=== PATIENT | male | born 1955 | race Caucasian/White ===

== ENCOUNTER 2020-03-16 14:55 | Emergency (ER) | payer OTHER, SELFPAY ==
[2020-03-16 15:09] VITALS: BP 130/79; PULSE 71; RESP 18; TEMP 36.4; O2SAT 100
--- NOTE | 2020-03-16 15:21 | ED.SKABFB ---
HPI - Skin/Abscess/Foreign Bdy General Chief complaint: Skin/Abscess/Foreign Body Stated complaint: Rash Source: patient Mode of arrival: ambulatory Limitations: no limitations History of Present Illness HPI narrative: Patient is a 64-year-old male who presents with poison oak last hand and leg. Patient reports he was exposed to irritant while [place] the [employer] [place]. He denies other complaints. He reports using topical creams without relief. He reports pruritus. Denies pain, denies other complaints. MD complaint: rash Related Data Allergies Allergy/AdvReac Type Severity Reaction Status Date / Time venison Allergy Unknown Uncoded 03/16/20 15:13 Review of Systems Review of Systems: Narrative: CONSTITUTIONAL: Denies fever, chills, or sweats. EYES: Denies visual changes, redness, or discharge. ENT: Denies rhinorrhea, congestion, sore throat, or otalgia. CARDIOVASCULAR: Denies chest pain, palpitations, or edema. RESPIRATORY: Denies cough or dyspnea. GASTROINTESTINAL: Denies abdominal pain, nausea, vomiting, or diarrhea. GENITOURINARY: Denies dysuria or hematuria. SKIN: Reports rash to the left hand and leg MUSCULOSKELETAL: Denies back pain, joint pain, or myalgia. NEUROLOGIC: Denies headache, numbness, dizziness, or weakness. PSYCHIATRIC: Denies anxiety or depression. [facility] Past Medical History Medical History (Updated 03/16/20 @ 15:33 by ANDREA Sesay) Diabetes insipidus Social History Social History (Updated 03/16/20 @ 15:30 by ANDREA Sesay) Smoking status: Never smoker Alcohol intake: current Alcohol use details: occasional Substance use: never Living arrangements: with family Gender identity (if verbalized by the patient): Male Exam Narrative: Exam Narrative: GENERAL: Well-appearing, well-nourished, and in no acute distress. HEAD: Normocephalic, atraumatic. EYES: No redness or drainage. ENT: Mucous membranes pink and moist. CHEST: No respiratory distress. HEART: Regular rate and rhythm. EXTREMITIES: Normal range of motion. No edema. SKIN: Area of erythema, excoriation and blistering to the dorsal left hand, moderate sized area to left leg. NEURO: No focal deficits. Alert and oriented x3. Gait steady. PSYCH: Normal affect. No signs of depression or anxiety. 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 He reports he is on 5 mg of something . Reports list of medications of condition should be in the computer. Patient does not appear to have been seen at an [place] facility in past. Vital Signs Vital signs: Vital Signs Temperature 36.4 C L 03/16/20 15:09 Pulse Rate 71 03/16/20 15:09 Respiratory Rate 18 03/16/20 15:09 Blood Pressure 130/79 03/16/20 15:09 Pulse Oximetry 100 03/16/20 15:09 Temperature 36.4 C L 03/16/20 15:09 Pulse Rate 71 03/16/20 15:09 Respiratory Rate 18 03/16/20 15:09 Blood Pressure 130/79 03/16/20 15:09 Pulse Oximetry 100 03/16/20 15:09 Reviewed. Patient has been instructed to follow-up with his PCP regarding his blood pressure. MDM - Skin/Abscess/Foreign Bdy MDM Narrative Medical decision making narrative: Patient has contact dermatitis. Patient to be treated with a topical steroid cream as well as prednisone. Patient is stable for discharge to home with outpatient follow-up. Critical Care Time Critical Care Time Critical Care Time: No Discharge Plan Discharge Clinical Impression: Contact dermatitis Qualifiers: Contact dermatitis type: irritant Contact dermatitis trigger: non-food plants Qualified Code(s): L24.7 - Irritant contact dermatitis due to plants, except food Patient Disposition: Home, Self-Care Condition: Stable Instructions: Antibiotic Form Additional Instructions: Please take prednisone as directed. You may use cream as directed. You may use Benadryl [id number] for itching as needed. Follow-up with your PCP if your condition do
--- NOTE | 2020-03-16 15:28 | PC.NURSE ---
1509- Pt would not disclose his PMH or med hx stated it was in his chart. 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
== END 2020-03-16 15:37 | disposition home or self-care (01) ==
PROVIDERS: Emergency Provider Nurse Practitioner
DX: L24.7 Irritant contact dermatitis due to plants, except food (principal); E23.2 Diabetes insipidus
CPT/HCPCS: 99203; G0463